=== PATIENT | female | born 1935 | race Caucasian/White ===

== ENCOUNTER 2017-09-09 11:18 | Emergency (ER) | payer MEDICARE ==
[~2017-09-09] VITALS: Ht 167.6 cm; Wt 81.6 kg
[2017-09-09 11:30] VITALS: BP_SYST 135
[2017-09-09 12:15] VITALS: BP_SYST 126
== END 2017-09-09 12:15 | disposition home or self-care (01) ==
LOC: SED 11:18
DX: S52.612D Displaced fracture of left ulna styloid process, subsequent encounter for closed fracture with routine healing (principal); S52.502D Unspecified fracture of the lower end of left radius, subsequent encounter for closed fracture with routine healing; I10 Essential (primary) hypertension; G30.9 Alzheimer's disease, unspecified; F02.80 Dementia in other diseases classified elsewhere, unspecified severity, without behavioral disturbance, psychotic disturbance, mood disturbance, and anxiety; X58.XXXD Exposure to other specified factors, subsequent encounter
CPT/HCPCS: 99283